=== PATIENT | male | born 1980 | race Caucasian/White ===

== ENCOUNTER 2020-04-10 09:28 | Emergency (ER) | payer MEDICAID ==
[~2020-04-10] VITALS: Ht 177.8 cm; Wt 95.2 kg
[2020-04-10 09:44] VITALS: BP 127/83
== END 2020-04-10 11:12 | disposition home or self-care (01) ==
LOC: ER 09:29
DX: Z00.8 Encounter for other general examination (principal)
CPT/HCPCS: 99281

== ENCOUNTER 2020-12-08 15:05 | Emergency (ER) | payer MEDICAID ==
[~2020-12-08] VITALS: Ht 177.8 cm; Wt 88.2 kg
[2020-12-08 15:24] VITALS: BP 124/82
--- NOTE | 2020-12-08 15:44 | NUR ---
not in the lobby.
== END 2020-12-08 16:43 | disposition home or self-care (01) ==
LOC: ER 15:06
DX: Z02.89 Encounter for other administrative examinations (principal); F15.90 Other stimulant use, unspecified, uncomplicated; Z98.890 Other specified postprocedural states
CPT/HCPCS: 99281

== ENCOUNTER 2021-01-09 11:00 | Emergency (ER) | payer MEDICAID ==
[~2021-01-09] VITALS: Ht 177.8 cm; Wt 89.1 kg
[2021-01-09 11:08] VITALS: BP 160/88
[2021-01-09] MEDS ORDERED: LORazepam 1 MG tablet PO ONE (12:35)
[2021-01-09] MEDS ORDERED: LORA-269 PO (12:46)
== END 2021-01-09 13:12 | disposition home or self-care (01) ==
LOC: ER 11:00
DX: F41.9 Anxiety disorder, unspecified (principal); R45.1 Restlessness and agitation; F15.90 Other stimulant use, unspecified, uncomplicated; Z98.890 Other specified postprocedural states; Z79.899 Other long term (current) drug therapy
CPT/HCPCS: 99283

== ENCOUNTER 2021-01-21 12:33 | Emergency (ER) | payer MEDICAID ==
[~2021-01-21] VITALS: Ht 177.8 cm; Wt 86.4 kg
[~2021-01-21 12:33] MED LIST: LORA-269 PO
[2021-01-21 12:56] VITALS: BP 146/94
== END 2021-01-21 13:11 ==
LOC: ER 12:33
DX: I10 Essential (primary) hypertension (principal); F15.10 Other stimulant abuse, uncomplicated; Z02.89 Encounter for other administrative examinations
CPT/HCPCS: 99283

== ENCOUNTER → 2021-01-23 | Emergency (ER) | payer MEDICAID ==
[~2021-01-23] VITALS: Ht 177.8 cm; Wt 90.9 kg
[~2021-01-23] MED LIST changes: +BUSP7.5T5 PO; +CHOL500050 PO; +CefTRIAXone 2gm/D5W 50ml BAG 50 ML IV ONE; +normal saline 1000ML IV soln IV ONE; +vancomycin/NS 1 GM ADD-VANTAGE 250 ML IV ONE
[2021-01-23 15:50] VITALS: BP 117/75
== END | disposition left against medical advice (07) ==
LOC: ER 15:08
DX: L03.114 Cellulitis of left upper limb (principal); R11.0 Nausea; A41.9 Sepsis, unspecified organism; F15.90 Other stimulant use, unspecified, uncomplicated; Z59.0 Homelessness; Z79.899 Other long term (current) drug therapy
CPT/HCPCS: 99283

== ENCOUNTER 2021-01-24 03:40 | Inpatient (IN) | payer MEDICAID ==
[~2021-01-24] VITALS: Ht 177.8 cm; Wt 90.0 kg
[~2021-01-24 03:40] MED LIST changes: -BUSP7.5T5 PO; -CHOL500050 PO; -CefTRIAXone 2gm/D5W 50ml BAG 50 ML IV ONE; -normal saline 1000ML IV soln IV ONE; -vancomycin/NS 1 GM ADD-VANTAGE 250 ML IV ONE
[2021-01-24] MEDS ORDERED: piperacillin/tazo 3.375gm/50ml 50 ML IV ONE (07:35)
[2021-01-24 08:14] LABS: BASOPHILS % (AUTO) 0.1 % (0-1); EOSINOPHILS % (AUTO) 0.1 % (0-6); HEMATOCRIT 39.7 % (42.0-52.0); LYMPHOCYTES # (AUTO) 0.5 X10'3 (1.1-4.8); LYMPHOCYTES % (AUTO) 2.3 % (21-51); MEAN CORPUSCULAR HGB CONC 35.4 g/dL (33.0-36.5); MEAN CORPUSCULAR VOLUME 87.7 FL (78-98); MONOCYTES # (AUTO) 0.9 X10'3 (0-0.9); MONOCYTES % (AUTO) 4.6 % (2-12); NEUTROPHILS # (AUTO) 18.8 X10'3 (1.8-7.7); NEUTROPHILS % (AUTO) 92.9 % (42-75); PLATELET COUNT 224 X10'3 (140-440); RED BLOOD COUNT 4.52 X10'6 (4.70-6.10); RED CELL DISTRIBUTION WIDTH 12.9 % (11.5-14.5); WHITE BLOOD COUNT 20.2 X10'3 (4.5-11.0)
[2021-01-24 08:15] LABS: CLARITY,URINE CLEAR (Clear); COLOR,URINE YELLOW (Yellow); GLUCOSE, URINE 500 mg/dl (Neg); KETONES,URINE NEGATIVE (Neg); LEUKOCYTE ESTERASE ,URINE NEGATIVE (Neg); NITRITES, URINE NEGATIVE (Neg); OCCULT BLOOD,URINE SMALL (Neg); PROTEIN,URINE NEGATIVE (Neg); UROBILINOGEN,URINE 0.2 E.U/dL (0.2-1.0)
[2021-01-24 08:20] LABS: UA COLLECTION TYPE CLN CATCH MIDSTREAM
[2021-01-24 08:21] LABS: SQUAMOUS EPITHELIAL CELL,UR FEW /LPF (FEW)
[2021-01-24 08:22] LABS: BACTERIA,URINE 1+ /HPF (Neg); RBC,URINE 0-2 /HPF (0-2); WBC,URINE 0-4 /HPF (0-4)
[2021-01-24 08:28] LABS: ALANINE AMINOTRANSFERASE 47 U/L (12-78); ALBUMIN 2.7 G/DL (3.4-5.0); ALBUMIN/GLOBULIN RATIO 0.6 (1.1-1.5); ALKALINE PHOSPHATASE 96 IU/L (46-116); ANION GAP 11 (8-16); ASPARTATE AMINO TRANSFERASE 30 U/L (10-37); BILIRUBIN,TOTAL 0.6 MG/DL (0.1-1.0); BLOOD UREA NITROGEN 11 MG/DL (7-18); BUN/CREATININE RATIO 12.8 (5.4-32.0); CHLORIDE 93 MMOL/L (99-107); CREATININE 0.86 MG/DL (0.60-1.10); GLUCOSE 142 MG/DL (70-104); MAGNESIUM 2.2 MG/DL (1.5-2.4); POTASSIUM 3.1 MMOL/L (3.5-5.1); SODIUM 132 MMOL/L (135-145); TOTAL CARBON DIOXIDE 28.5 MMOL/L (24-32); TOTAL PROTEIN 7.5 G/DL (6.4-8.2); eGFR > 90 ML/MIN
[2021-01-24 08:37] LABS: CALCIUM 9.3 MG/DL (8.5-10.1)
[2021-01-24] MEDS ORDERED: iohexol 300mg/ml 100ml inj. ONE (08:42)
[2021-01-24] MEDS ORDERED: normal saline 1000ML IV soln IV ONE (08:50)
[2021-01-24] MEDS ORDERED: VANCOmycin 1250MG/NS 250ml Bag 250 ML IV STA (10:20)
[2021-01-24] MEDS ORDERED: potassium Cl 40MEQ/1/2NS 520ml 520 ML IV PRN ×2 (10:20)
[2021-01-24] MEDS ORDERED: ondansetron/PF 4mg/2ml inj IV PRN (10:20)
[2021-01-24] MEDS ORDERED: magnesium 2GM in 50ml NS 50 ML IV PRN (10:20)
[2021-01-24] MEDS ORDERED: magnesium 4gm in 100ml NS 100 ML IV PRN (10:20)
[2021-01-24] MEDS ORDERED: magnesium Cl slow-release 64mg tablet PO PRN (10:20)
[2021-01-24] MEDS ORDERED: magnesium hydroxide 30ml (MOM) UD suspension PO PRN (10:20)
[2021-01-24] MEDS ORDERED: HYDROcodone/acetaminophen 5mg/325mg tablet PO PRN (10:20)
[2021-01-24] MEDS ORDERED: acetaminophen 325mg tablet PO PRN ×2 (10:20)
[2021-01-24] MEDS ORDERED: potassium Cl 20 mEq SR tablet PO PRN (10:20)
[2021-01-24] MEDS ORDERED: mag hydrox/Alum hydrox/simeth 30ml oral suspension PO PRN (10:20)
[2021-01-24] MEDS: normal saline 1000ml 1,000 ML IV SCH ×2 (10:51→16:28)
[2021-01-24] MEDS: vancomycin/NS 1 GM ADD-VANTAGE 250 ML IV SCH ×3 (10:51→12:05)
[2021-01-24] MEDS: potassium Cl 20 mEq SR tablet PO PRN ×2 (12:05→16:28)
[2021-01-24] MEDS ORDERED: BUSP7.5T5 PO (12:07)
[2021-01-24] MEDS ORDERED: CHOL500050 PO (12:07)
[2021-01-24] MEDS ORDERED: LORA-269 PO (12:12)
[2021-01-24] MEDS: LORazepam 0.5 MG tablet PO PRN ×2 (12:51→19:30)
[2021-01-24 14:30] VITALS: BP 138/87
[2021-01-24] MEDS: piperacillin/tazo 3.375gm/50ml 50 ML IV SCH (16:27)
[2021-01-24] MEDS: HYDROcodone/acetaminophen 10/325mg tab PO PRN ×2 (16:31→21:23)
--- NOTE | 2021-01-24 18:56 | NUR ---
Problems reprioritized. Patient report given, questions answered & plan of care reviewed with AISLINN JUAREZ.
[2021-01-24 19:00] VITALS: BP 116/75
[2021-01-24] MEDS ORDERED: TETanus/Pertussis (Acell)/Diphther VAC/PF (Tdap-Adult) 0.5ml syringe IMVAC ONE (19:00)
[2021-01-24] MEDS: docusate sod 100mg capsule PO SCH (19:30)
[2021-01-24] MEDS: K and/or MAG REPLACEMENT MC SCH (20:00)
[2021-01-24] MEDS ORDERED: temazepam 15mg capsule PO PRN (21:00)
[2021-01-25] VITALS: BP 106/60
[2021-01-25] MEDS: piperacillin/tazo 3.375gm/50ml 50 ML IV SCH ×3 (00:21→16:27)
[2021-01-25] MEDS: normal saline 1000ml 1,000 ML IV SCH ×2 (00:27→12:32)
[2021-01-25] MEDS: vancomycin/NS 1 GM ADD-VANTAGE 250 ML IV SCH ×2 (02:56→12:28)
[2021-01-25] MEDS: HYDROcodone/acetaminophen 10/325mg tab PO PRN ×3 (03:02→19:47)
--- NOTE | 2021-01-25 06:45 | NUR ---
Problems reprioritized. Patient report given, questions answered & plan of care reviewed with Hannah TAO.
[2021-01-25 07:08] LABS: BASOPHILS % (AUTO) 0.1 % (0-1); EOSINOPHILS % (AUTO) 0.2 % (0-6); HEMATOCRIT 33.8 % (42.0-52.0); HEMOGLOBIN 11.7 g/dl (14.0-17.9); LYMPHOCYTES # (AUTO) 1.3 X10'3 (1.1-4.8); LYMPHOCYTES % (AUTO) 5.9 % (21-51); MEAN CORPUSCULAR HEMOGLOBIN 30.3 PG (27.0-31.0); MEAN CORPUSCULAR HGB CONC 34.6 g/dL (33.0-36.5); MEAN CORPUSCULAR VOLUME 87.8 FL (78-98); MEAN PLATELET VOLUME 8.3 FL (7.4-10.4); MONOCYTES # (AUTO) 1.5 X10'3 (0-0.9); MONOCYTES % (AUTO) 7.2 % (2-12); NEUTROPHILS # (AUTO) 18.6 X10'3 (1.8-7.7); NEUTROPHILS % (AUTO) 86.6 % (42-75); PLATELET COUNT 241 X10'3 (140-440); RED BLOOD COUNT 3.85 X10'6 (4.70-6.10); RED CELL DISTRIBUTION WIDTH 13.1 % (11.5-14.5); WHITE BLOOD COUNT 21.5 X10'3 (4.5-11.0)
[2021-01-25 07:21] LABS: ALANINE AMINOTRANSFERASE 52 U/L (12-78); ALBUMIN/GLOBULIN RATIO 0.5 (1.1-1.5); ALKALINE PHOSPHATASE 232 IU/L (46-116); ANION GAP 6 (8-16); ASPARTATE AMINO TRANSFERASE 33 U/L (10-37); BILIRUBIN,TOTAL 0.3 MG/DL (0.1-1.0); BLOOD UREA NITROGEN 9 MG/DL (7-18); BUN/CREATININE RATIO 11.3 (5.4-32.0); CALCIUM 7.7 MG/DL (8.5-10.1); CHLORIDE 102 MMOL/L (99-107); GLUCOSE 92 MG/DL (70-104); MAGNESIUM 1.8 MG/DL (1.5-2.4); POTASSIUM 3.8 MMOL/L (3.5-5.1); SODIUM 133 MMOL/L (135-145); TOTAL CARBON DIOXIDE 24.8 MMOL/L (24-32); TOTAL PROTEIN 5.7 G/DL (6.4-8.2); eGFR > 90 ML/MIN
[2021-01-25 08:00] VITALS: BP 108/62
[2021-01-25] MEDS: K and/or MAG REPLACEMENT MC SCH ×2 (08:00→20:00)
[2021-01-25] MEDS: docusate sod 100mg capsule PO SCH ×2 (08:24→19:48)
[2021-01-25] MEDS: enoxaparin 40mg/0.4ml syringe SUBCUT SCH (08:25)
[2021-01-25] MEDS: LORazepam 0.5 MG tablet PO PRN ×2 (09:57→19:48)
[2021-01-25] MEDS ORDERED: VANCOMYCIN LEVEL IV ONE (10:30)
[2021-01-25 11:00] VITALS: BP 109/71
[2021-01-25 12:42] LABS: PLATELET ESTIMATE NORMAL; TOTAL CELLS COUNTED 100
[2021-01-25] MEDS ORDERED: vancomycin inj 500 MG in normal saline 100ml IV soln 100 ML IV ONE (14:20)
[2021-01-25] MEDS: HYDROmorphone inj. 0.5 MG/0.5 ML DISP.SYRIN IV PRN (16:39)
[2021-01-25 18:00] VITALS: BP 144/86
--- NOTE | 2021-01-25 19:20 | NUR ---
Patient in room [facility]. I have received report from AISLINN Young and had the opportunity to ask questions and assume patient care. Patient is on phone at the time of me introducing myself
--- NOTE | 2021-01-25 19:26 | NUR ---
Report given to Wyatt Salomon, all questions answered. Pt alert and oriented in bed.
[2021-01-25] MEDS: lactobacillus rhamnosus 10,000 MMU CELLS/CAPSULE PO SCH (19:48)
[2021-01-26 00:29] VITALS: BP 120/63
[2021-01-26] MEDS: piperacillin/tazo 3.375gm/50ml 50 ML IV SCH ×2 (01:14→08:22)
[2021-01-26] MEDS: HYDROcodone/acetaminophen 10/325mg tab PO PRN ×3 (01:16→11:32)
[2021-01-26] MEDS: LORazepam 0.5 MG tablet PO PRN ×3 (01:16→23:05)
[2021-01-26] MEDS: normal saline 1000ml 1,000 ML IV SCH ×3 (02:20→22:20)
--- NOTE | 2021-01-26 06:06 | NUR ---
Problems reprioritized. Patient report given, questions answered & plan of care reviewed with AISLINN Young.
[2021-01-26 06:41] LABS: BASOPHILS % (AUTO) 0.2 % (0-1); EOSINOPHILS # (AUTO) 0.1 X10'3 (0-0.9); EOSINOPHILS % (AUTO) 0.7 % (0-6); HEMATOCRIT 37.2 % (42.0-52.0); HEMOGLOBIN 12.7 g/dl (14.0-17.9); LYMPHOCYTES # (AUTO) 1.3 X10'3 (1.1-4.8); LYMPHOCYTES % (AUTO) 7.2 % (21-51); MEAN CORPUSCULAR HEMOGLOBIN 30.1 PG (27.0-31.0); MEAN CORPUSCULAR HGB CONC 34.2 g/dL (33.0-36.5); MEAN CORPUSCULAR VOLUME 87.9 FL (78-98); MEAN PLATELET VOLUME 7.8 FL (7.4-10.4); MONOCYTES # (AUTO) 1.5 X10'3 (0-0.9); MONOCYTES % (AUTO) 8.5 % (2-12); NEUTROPHILS # (AUTO) 14.6 X10'3 (1.8-7.7); NEUTROPHILS % (AUTO) 83.4 % (42-75); PLATELET COUNT 300 X10'3 (140-440); RED BLOOD COUNT 4.23 X10'6 (4.70-6.10); RED CELL DISTRIBUTION WIDTH 13.1 % (11.5-14.5); WHITE BLOOD COUNT 17.6 X10'3 (4.5-11.0)
--- NOTE | 2021-01-26 06:44 | NUR ---
Patient asked to go outside for just a "second", I told him that he had to stay on the floor, if he leaves the floor it is considered that he has left medical advice. He agrees to stay on the floor.
[2021-01-26 06:52] LABS: ALANINE AMINOTRANSFERASE 89 U/L (12-78); ALBUMIN 2.1 G/DL (3.4-5.0); ALBUMIN/GLOBULIN RATIO 0.5 (1.1-1.5); ALKALINE PHOSPHATASE 212 IU/L (46-116); ANION GAP 7 (8-16); ASPARTATE AMINO TRANSFERASE 46 U/L (10-37); BILIRUBIN,TOTAL 0.3 MG/DL (0.1-1.0); BLOOD UREA NITROGEN 6 MG/DL (7-18); BUN/CREATININE RATIO 7.9 (5.4-32.0); CALCIUM 8.2 MG/DL (8.5-10.1); CHLORIDE 103 MMOL/L (99-107); CREATININE 0.76 MG/DL (0.60-1.10); GLUCOSE 100 MG/DL (70-104); MAGNESIUM 2.3 MG/DL (1.5-2.4); POTASSIUM 3.8 MMOL/L (3.5-5.1); SODIUM 139 MMOL/L (135-145); TOTAL CARBON DIOXIDE 28.6 MMOL/L (24-32); TOTAL PROTEIN 6.6 G/DL (6.4-8.2); eGFR > 90 ML/MIN
[2021-01-26 07:00] VITALS: BP_SYST 126; BP_SYST 134; BP_DIAS 83; BP_DIAS 86
[2021-01-26 07:10] LABS: PLATELET ESTIMATE NORMAL; TOTAL CELLS COUNTED 100; TOXIC GRANULATION 2+
[2021-01-26] MEDS: docusate sod 100mg capsule PO SCH ×2 (07:50→19:07)
[2021-01-26] MEDS: lactobacillus rhamnosus 10,000 MMU CELLS/CAPSULE PO SCH ×2 (07:50→19:07)
[2021-01-26] MEDS: enoxaparin 40mg/0.4ml syringe SUBCUT SCH (07:51)
[2021-01-26] MEDS: K and/or MAG REPLACEMENT MC SCH ×2 (08:00→19:09)
[2021-01-26] MEDS ORDERED: VANCOMYCIN LEVEL IV ONE (12:30)
[2021-01-26] MEDS: clindamycin 600mg/D5W 50ml 50 ML IV SCH ×2 (14:14→19:07)
[2021-01-26] MEDS: HYDROmorphone inj. 0.5 MG/0.5 ML DISP.SYRIN IV PRN ×3 (14:14→23:03)
[2021-01-26] MEDS: VANCOmycin 1250MG/NS 250ml Bag 250 ML IV SCH ×2 (15:04→21:38)
[2021-01-26 18:00] VITALS: BP 120/69
[2021-01-26 23:45] VITALS: BP 108/74
[2021-01-27] MEDS: normal saline 1000ml 1,000 ML IV SCH ×2 (00:47→16:13)
[2021-01-27] MEDS: clindamycin 600mg/D5W 50ml 50 ML IV SCH ×4 (02:34→20:33)
[2021-01-27] MEDS: HYDROmorphone inj. 0.5 MG/0.5 ML DISP.SYRIN IV PRN ×3 (03:05→21:23)
[2021-01-27] MEDS: LORazepam 0.5 MG tablet PO PRN ×2 (03:15→11:58)
[2021-01-27] MEDS: VANCOmycin 1250MG/NS 250ml Bag 250 ML IV SCH ×4 (03:15→21:23)
--- NOTE | 2021-01-27 06:46 | NUR ---
Report given to Alayna Salomon, all questions answered. Pt has fallen asleep. No distress.
[2021-01-27 07:00] VITALS: BP 139/86
--- NOTE | 2021-01-27 07:07 | NUR ---
Patient in room [facility]. I have received report from Hannah TAO and had the opportunity to ask questions and assume patient care.
[2021-01-27] MEDS: K and/or MAG REPLACEMENT MC SCH ×2 (08:00→20:00)
[2021-01-27] MEDS: lactobacillus rhamnosus 10,000 MMU CELLS/CAPSULE PO SCH ×2 (08:48→20:32)
[2021-01-27] MEDS: enoxaparin 40mg/0.4ml syringe SUBCUT SCH (08:49)
[2021-01-27] MEDS: HYDROcodone/acetaminophen 10/325mg tab PO PRN ×3 (08:49→19:58)
[2021-01-27] MEDS: docusate sod 100mg capsule PO SCH ×2 (08:49→20:33)
[2021-01-27 10:02] LABS: BASOPHILS # (AUTO) 0.1 X10'3 (0-0.2); BASOPHILS % (AUTO) 0.8 % (0-1); EOSINOPHILS # (AUTO) 0.2 X10'3 (0-0.9); HEMATOCRIT 36.9 % (42.0-52.0); HEMOGLOBIN 12.7 g/dl (14.0-17.9); LYMPHOCYTES # (AUTO) 1.4 X10'3 (1.1-4.8); LYMPHOCYTES % (AUTO) 8.3 % (21-51); MEAN CORPUSCULAR HEMOGLOBIN 30.4 PG (27.0-31.0); MEAN CORPUSCULAR HGB CONC 34.5 g/dL (33.0-36.5); MEAN CORPUSCULAR VOLUME 88.3 FL (78-98); MONOCYTES % (AUTO) 6.1 % (2-12); NEUTROPHILS % (AUTO) 83.8 % (42-75); PLATELET COUNT 367 X10'3 (140-440); RED BLOOD COUNT 4.19 X10'6 (4.70-6.10); RED CELL DISTRIBUTION WIDTH 13.2 % (11.5-14.5); WHITE BLOOD COUNT 16.7 X10'3 (4.5-11.0)
[2021-01-27 10:21] LABS: ALANINE AMINOTRANSFERASE 103 U/L (12-78); ALBUMIN 2.2 G/DL (3.4-5.0); ALBUMIN/GLOBULIN RATIO 0.5 (1.1-1.5); ALKALINE PHOSPHATASE 177 IU/L (46-116); ANION GAP 10 (8-16); ASPARTATE AMINO TRANSFERASE 46 U/L (10-37); BILIRUBIN,TOTAL 0.2 MG/DL (0.1-1.0); BLOOD UREA NITROGEN 6 MG/DL (7-18); BUN/CREATININE RATIO 7.8 (5.4-32.0); CHLORIDE 101 MMOL/L (99-107); CREATININE 0.77 MG/DL (0.60-1.10); GLUCOSE 151 MG/DL (70-104); MAGNESIUM 2.1 MG/DL (1.5-2.4); POTASSIUM 3.7 MMOL/L (3.5-5.1); SODIUM 138 MMOL/L (135-145); TOTAL CARBON DIOXIDE 26.8 MMOL/L (24-32); TOTAL PROTEIN 6.6 G/DL (6.4-8.2); VANCOMYCIN,TROUGH 13.5 UG/ML (6.0-14.0); eGFR > 90 ML/MIN
[2021-01-27 10:26] LABS: PLATELET ESTIMATE NORMAL; TOTAL CELLS COUNTED 100
[2021-01-27 11:00] VITALS: BP 156/66
--- NOTE | 2021-01-27 11:00 | NUR ---
Measured patients arm and made mai on left arm just below elbow measuring 39cm and left Bicep measuring 41cm.
[2021-01-27] MEDS ORDERED: GADOTERATE MEGLUMINE 7.5 MMOL/15 ML VIAL IV ONE (11:48)
[2021-01-27 18:00] VITALS: BP 151/109
--- NOTE | 2021-01-27 18:17 | NUR ---
Problems reprioritized. Patient report given, questions answered & plan of care reviewed with Heidy RN and CELESTE RN.
--- NOTE | 2021-01-27 19:23 | NUR ---
Patient in room [facility]. I have received report from LARRY TAO and had the opportunity to ask questions and assume patient care.
[2021-01-28] VITALS: BP 139/82
[2021-01-28] MEDS: HYDROcodone/acetaminophen 10/325mg tab PO PRN ×4 (00:42→17:33)
[2021-01-28] MEDS: clindamycin 600mg/D5W 50ml 50 ML IV SCH ×4 (02:56→21:28)
[2021-01-28] MEDS: VANCOmycin 1250MG/NS 250ml Bag 250 ML IV SCH ×2 (03:16→11:25)
[2021-01-28] MEDS: HYDROmorphone inj. 0.5 MG/0.5 ML DISP.SYRIN IV PRN ×4 (03:16→21:28)
[2021-01-28] MEDS: normal saline 1000ml 1,000 ML IV SCH ×3 (04:20→22:54)
--- NOTE | 2021-01-28 06:35 | NUR ---
Patient in room [facility]. I have received report from LUNA TAO and had the opportunity to ask questions and assume patient care.
--- NOTE | 2021-01-28 06:41 | NUR ---
Problems reprioritized. Patient report given, questions answered & plan of care reviewed with CHASITY RN.
--- NOTE | 2021-01-28 06:42 | NUR ---
Problems reprioritized. Patient report given, questions answered & plan of care reviewed with Paulie RN.
[2021-01-28 07:19] VITALS: BP 140/90
[2021-01-28] MEDS: K and/or MAG REPLACEMENT MC SCH ×2 (08:00→20:00)
[2021-01-28] MEDS ORDERED: VANCOMYCIN LEVEL IV ONE (08:30)
[2021-01-28] MEDS: lactobacillus rhamnosus 10,000 MMU CELLS/CAPSULE PO SCH ×2 (08:34→20:44)
[2021-01-28] MEDS: enoxaparin 40mg/0.4ml syringe SUBCUT SCH (08:35)
[2021-01-28] MEDS: docusate sod 100mg capsule PO SCH ×2 (08:35→20:44)
[2021-01-28 10:35] LABS: BASOPHILS # (AUTO) 0.2 X10'3 (0-0.2); BASOPHILS % (AUTO) 1.1 % (0-1); EOSINOPHILS # (AUTO) 0.3 X10'3 (0-0.9); EOSINOPHILS % (AUTO) 1.3 % (0-6); HEMATOCRIT 39.2 % (42.0-52.0); HEMOGLOBIN 13.8 g/dl (14.0-17.9); LYMPHOCYTES # (AUTO) 2.3 X10'3 (1.1-4.8); LYMPHOCYTES % (AUTO) 11.7 % (21-51); MEAN CORPUSCULAR HEMOGLOBIN 30.8 PG (27.0-31.0); MEAN CORPUSCULAR HGB CONC 35.2 g/dL (33.0-36.5); MEAN CORPUSCULAR VOLUME 87.4 FL (78-98); MEAN PLATELET VOLUME 7.6 FL (7.4-10.4); MONOCYTES # (AUTO) 1.3 X10'3 (0-0.9); MONOCYTES % (AUTO) 6.7 % (2-12); NEUTROPHILS # (AUTO) 15.4 X10'3 (1.8-7.7); NEUTROPHILS % (AUTO) 79.2 % (42-75); PLATELET COUNT 482 X10'3 (140-440); RED BLOOD COUNT 4.49 X10'6 (4.70-6.10); WHITE BLOOD COUNT 19.5 X10'3 (4.5-11.0)
[2021-01-28 10:48] LABS: ALANINE AMINOTRANSFERASE 134 U/L (12-78); ALBUMIN 2.6 G/DL (3.4-5.0); ALBUMIN/GLOBULIN RATIO 0.5 (1.1-1.5); ALKALINE PHOSPHATASE 180 IU/L (46-116); ANION GAP 8 (8-16); ASPARTATE AMINO TRANSFERASE 45 U/L (10-37); BILIRUBIN,TOTAL 0.3 MG/DL (0.1-1.0); BLOOD UREA NITROGEN 6 MG/DL (7-18); BUN/CREATININE RATIO 8.8 (5.4-32.0); CALCIUM 8.8 MG/DL (8.5-10.1); CHLORIDE 102 MMOL/L (99-107); CREATININE 0.68 MG/DL (0.60-1.10); GLUCOSE 88 MG/DL (70-104); MAGNESIUM 2.3 MG/DL (1.5-2.4); POTASSIUM 3.8 MMOL/L (3.5-5.1); SODIUM 142 MMOL/L (135-145); TOTAL CARBON DIOXIDE 31.8 MMOL/L (24-32); TOTAL PROTEIN 7.8 G/DL (6.4-8.2); VANCOMYCIN,TROUGH 13.5 UG/ML (6.0-14.0); eGFR > 90 ML/MIN
[2021-01-28 11:00] LABS: TOTAL CELLS COUNTED 100
[2021-01-28 11:01] LABS: PLATELET ESTIMATE INCREASED
[2021-01-28 12:15] VITALS: BP 145/88
[2021-01-28] MEDS: LORazepam 0.5 MG tablet PO PRN (12:43)
[2021-01-28] MEDS: vancomycin 1500mg/300ml PREMIX 250 ML IV SCH ×2 (17:29→23:40)
[2021-01-28] MEDS: nicotine 21mg patch - 24 hr TD SCH (17:29)
[2021-01-28] MEDS: montelukast 10mg tablet PO SCH (17:55)
[2021-01-28 18:00] VITALS: BP 148/94
--- NOTE | 2021-01-28 18:43 | NUR ---
Problems reprioritized. Patient report given, questions answered & plan of care reviewed with Emmy TAO.
--- NOTE | 2021-01-28 18:44 | NUR ---
Patient in room [facility]. I have received report from AISLINN Apodaca and had the opportunity to ask questions and assume patient care.
[2021-01-28] MEDS: hydrOXYzine 25 MG tablet PO SCH (20:44)
[2021-01-28] MEDS: mineral oil/petrolatum, white cream 113gm jar TP SCH (21:28)
[2021-01-29] VITALS: BP 135/92
[2021-01-29] MEDS: HYDROmorphone inj. 0.5 MG/0.5 ML DISP.SYRIN IV PRN ×3 (01:49→11:52)
[2021-01-29] MEDS: hydrOXYzine 25 MG tablet PO SCH ×4 (02:30→19:47)
[2021-01-29] MEDS: clindamycin 600mg/D5W 50ml 50 ML IV SCH ×4 (02:31→20:03)
[2021-01-29] MEDS: HYDROcodone/acetaminophen 10/325mg tab PO PRN ×4 (04:09→22:32)
[2021-01-29 05:55] LABS: BASOPHILS # (AUTO) 0.2 X10'3 (0-0.2); BASOPHILS % (AUTO) 0.9 % (0-1); EOSINOPHILS # (AUTO) 0.3 X10'3 (0-0.9); EOSINOPHILS % (AUTO) 1.7 % (0-6); HEMATOCRIT 37.6 % (42.0-52.0); HEMOGLOBIN 12.9 g/dl (14.0-17.9); LYMPHOCYTES # (AUTO) 2.2 X10'3 (1.1-4.8); LYMPHOCYTES % (AUTO) 12.9 % (21-51); MEAN CORPUSCULAR HEMOGLOBIN 30.8 PG (27.0-31.0); MEAN CORPUSCULAR HGB CONC 34.4 g/dL (33.0-36.5); MEAN CORPUSCULAR VOLUME 89.5 FL (78-98); MEAN PLATELET VOLUME 7.4 FL (7.4-10.4); MONOCYTES % (AUTO) 6.1 % (2-12); NEUTROPHILS # (AUTO) 13.4 X10'3 (1.8-7.7); NEUTROPHILS % (AUTO) 78.4 % (42-75); PLATELET COUNT 448 X10'3 (140-440); RED CELL DISTRIBUTION WIDTH 13.2 % (11.5-14.5); WHITE BLOOD COUNT 17.1 X10'3 (4.5-11.0)
[2021-01-29 06:11] LABS: ALANINE AMINOTRANSFERASE 129 U/L (12-78); ALBUMIN 2.3 G/DL (3.4-5.0); ALBUMIN/GLOBULIN RATIO 0.5 (1.1-1.5); ALKALINE PHOSPHATASE 149 IU/L (46-116); ANION GAP 7 (8-16); ASPARTATE AMINO TRANSFERASE 50 U/L (10-37); BILIRUBIN,TOTAL 0.2 MG/DL (0.1-1.0); BLOOD UREA NITROGEN 8 MG/DL (7-18); BUN/CREATININE RATIO 9.1 (5.4-32.0); CALCIUM 8.5 MG/DL (8.5-10.1); CHLORIDE 103 MMOL/L (99-107); CREATININE 0.88 MG/DL (0.60-1.10); GLUCOSE 123 MG/DL (70-104); MAGNESIUM 2.1 MG/DL (1.5-2.4); POTASSIUM 4.5 MMOL/L (3.5-5.1); SODIUM 138 MMOL/L (135-145); eGFR > 90 ML/MIN
[2021-01-29 07:04] LABS: TOTAL CELLS COUNTED 100
[2021-01-29 07:05] LABS: LARGE PLATELETS FEW; PLATELET ESTIMATE NORMAL
[2021-01-29 07:18] VITALS: BP 135/92
[2021-01-29 07:32] VITALS: BP 154/97
[2021-01-29] MEDS: lactobacillus rhamnosus 10,000 MMU CELLS/CAPSULE PO SCH ×2 (07:48→19:47)
[2021-01-29] MEDS: montelukast 10mg tablet PO SCH (07:48)
[2021-01-29] MEDS: docusate sod 100mg capsule PO SCH ×2 (07:48→19:48)
[2021-01-29] MEDS: vancomycin 1500mg/300ml PREMIX 250 ML IV SCH ×3 (07:49→17:53)
[2021-01-29] MEDS: enoxaparin 40mg/0.4ml syringe SUBCUT SCH (07:51)
[2021-01-29] MEDS: nicotine 21mg patch - 24 hr TD SCH (07:58)
[2021-01-29] MEDS: K and/or MAG REPLACEMENT MC SCH ×2 (08:00→20:00)
[2021-01-29] MEDS: mineral oil/petrolatum, white cream 113gm jar TP SCH ×2 (08:04→20:04)
[2021-01-29] MEDS ORDERED: VANCOMYCIN LEVEL IV ONE ×3 (10:30→22:30)
[2021-01-29 11:26] VITALS: BP 155/95
[2021-01-29] MEDS: normal saline 1000ml 1,000 ML IV SCH ×2 (11:52→20:20)
--- NOTE | 2021-01-29 14:40 | NUR ---
PIV inserted to right FA after 2 failed attempt to establish an extended PIV in the upper right arm using ultrasound guidance. Addendum: 01/29/21 at 1443 by Kate Lester RN Amended: Links added.
--- NOTE | 2021-01-29 16:02 | NUR ---
Initial: Pt admit DX L arm cellulitis, transaminitis, and CHANI w/ hx meth abuse per EMR. PO 75-100% avg regular diet meeting needs. LBM 01/28. No nutrition intervention at this time. Will continue to monitor. Rec: 1. continue regular diet 2. routine bowel care 3. scaled wt this admit; subsequent weekly wts Addendum: 01/29/21 at [address] Amended: Links added.
[2021-01-29 18:00] VITALS: BP 116/68
--- NOTE | 2021-01-29 18:31 | NUR ---
Problems reprioritized. Patient report given, questions answered & plan of care reviewed with Emmy TAO.
--- NOTE | 2021-01-29 18:32 | NUR ---
Patient in room [facility]. I have received report from AISLINN Apodaca and had the opportunity to ask questions and assume patient care.
--- NOTE | 2021-01-29 22:42 | NUR ---
Patients old lines to arm for measuring had washed off I made new lines with a shapie pen and new measurements are left Bicep is 36 cm and left forearm 37cm
--- NOTE | 2021-01-29 22:53 | NUR ---
Received call from Vick with the lab who stated patients Vanco tr is critical 23.8. Called and spoke to Nenita the pharmacist who stated to hold this dose and she will put in a VT for 0430 and wants it drawn at exactly 0430. Nenita is putting a hold on the 0500 dose of Vanco until VT is up and phamacist takes the hold off. If we see the Vanco results we can call pharmacy to advise if we are to give the 0500 dose. Primary RN Emmy is aware and xray tech aware.
--- NOTE | 2021-01-29 23:00 | NUR ---
Dr Ramirez was notified of patient's critical Vanco trough of 23.8
[2021-01-30] VITALS: BP 130/71
[2021-01-30] MEDS: HYDROmorphone inj. 0.5 MG/0.5 ML DISP.SYRIN IV PRN ×3 (01:47→19:07)
[2021-01-30] MEDS: clindamycin 600mg/D5W 50ml 50 ML IV SCH ×4 (02:00→22:54)
[2021-01-30] MEDS: hydrOXYzine 25 MG tablet PO SCH ×4 (02:03→19:07)
--- NOTE | 2021-01-30 06:17 | NUR ---
Problems reprioritized. Patient report given, questions answered & plan of care reviewed with AISLINN Ruth.
[2021-01-30] MEDS: normal saline 1000ml 1,000 ML IV SCH ×3 (06:20→22:54)
[2021-01-30 06:52] LABS: MAGNESIUM 2.4 MG/DL (1.5-2.4); VANCOMYCIN,TROUGH 9.9 UG/ML (6.0-14.0)
[2021-01-30 07:00] VITALS: BP 130/86
[2021-01-30] MEDS: docusate sod 100mg capsule PO SCH ×2 (07:30→19:08)
[2021-01-30] MEDS: montelukast 10mg tablet PO SCH (07:30)
[2021-01-30] MEDS: lactobacillus rhamnosus 10,000 MMU CELLS/CAPSULE PO SCH ×2 (07:31→19:08)
[2021-01-30] MEDS: nicotine 21mg patch - 24 hr TD SCH (07:31)
[2021-01-30] MEDS: enoxaparin 40mg/0.4ml syringe SUBCUT SCH (07:32)
[2021-01-30] MEDS: HYDROcodone/acetaminophen 10/325mg tab PO PRN (07:32)
[2021-01-30] MEDS: K and/or MAG REPLACEMENT MC SCH ×2 (08:00→20:00)
[2021-01-30] MEDS ORDERED: LORazepam 1 MG tablet PO PRN (09:05)
[2021-01-30 09:52] LABS: BASOPHILS # (AUTO) 0.1 X10'3 (0-0.2); BASOPHILS % (AUTO) 0.5 % (0-1); EOSINOPHILS # (AUTO) 0.2 X10'3 (0-0.9); EOSINOPHILS % (AUTO) 1.5 % (0-6); HEMATOCRIT 41.7 % (42.0-52.0); HEMOGLOBIN 14.4 g/dl (14.0-17.9); LYMPHOCYTES # (AUTO) 2.1 X10'3 (1.1-4.8); LYMPHOCYTES % (AUTO) 18.2 % (21-51); MEAN CORPUSCULAR HEMOGLOBIN 30.5 PG (27.0-31.0); MEAN CORPUSCULAR HGB CONC 34.6 g/dL (33.0-36.5); MEAN CORPUSCULAR VOLUME 88.3 FL (78-98); MEAN PLATELET VOLUME 6.9 FL (7.4-10.4); MONOCYTES # (AUTO) 0.7 X10'3 (0-0.9); MONOCYTES % (AUTO) 5.6 % (2-12); NEUTROPHILS # (AUTO) 8.7 X10'3 (1.8-7.7); NEUTROPHILS % (AUTO) 74.2 % (42-75); PLATELET COUNT 519 X10'3 (140-440); RED BLOOD COUNT 4.72 X10'6 (4.70-6.10); RED CELL DISTRIBUTION WIDTH 13.3 % (11.5-14.5); WHITE BLOOD COUNT 11.7 X10'3 (4.5-11.0)
[2021-01-30 10:14] LABS: ALANINE AMINOTRANSFERASE 183 U/L (12-78); ALBUMIN 2.9 G/DL (3.4-5.0); ALBUMIN/GLOBULIN RATIO 0.5 (1.1-1.5); ALKALINE PHOSPHATASE 159 IU/L (46-116); ANION GAP 10 (8-16); ASPARTATE AMINO TRANSFERASE 72 U/L (10-37); BILIRUBIN,TOTAL 0.2 MG/DL (0.1-1.0); BLOOD UREA NITROGEN 10 MG/DL (7-18); BUN/CREATININE RATIO 13.9 (5.4-32.0); CALCIUM 9.8 MG/DL (8.5-10.1); CHLORIDE 100 MMOL/L (99-107); CREATININE 0.72 MG/DL (0.60-1.10); GLUCOSE 107 MG/DL (70-104); POTASSIUM 4.9 MMOL/L (3.5-5.1); SODIUM 140 MMOL/L (135-145); TOTAL CARBON DIOXIDE 29.7 MMOL/L (24-32); TOTAL PROTEIN 8.4 G/DL (6.4-8.2); eGFR > 90 ML/MIN
[2021-01-30 11:00] VITALS: BP 143/98
[2021-01-30 11:07] LABS: LARGE PLATELETS FEW; PLATELET ESTIMATE INCREASED; TOTAL CELLS COUNTED 100
[2021-01-30] MEDS: vancomycin 1500mg/300ml PREMIX 250 ML IV SCH ×2 (13:46→19:08)
[2021-01-30] MEDS: mineral oil/petrolatum, white cream 113gm jar TP SCH ×2 (13:47→19:08)
[2021-01-30 18:00] VITALS: BP 150/108
--- NOTE | 2021-01-30 18:45 | NUR ---
Problems reprioritized. Patient report given, questions answered & plan of care reviewed with AISLINN APPLE.
--- NOTE | 2021-01-30 18:45 | NUR ---
Patient in room [facility]. I have received report from AISLINN Ruth and had the opportunity to ask questions and assume patient care.
[2021-01-31] VITALS: BP 135/75
[2021-01-31] MEDS: vancomycin 1500mg/300ml PREMIX 250 ML IV SCH ×6 (01:00→20:54)
[2021-01-31] MEDS: hydrOXYzine 25 MG tablet PO SCH ×4 (02:19→20:54)
--- NOTE | 2021-01-31 02:52 | NUR ---
Patient's vanco had label from day before was told by Nick in pharmacy to override. The discontinued med label was scanned and was documented as administered with today's date and time.
[2021-01-31 06:25] LABS: BASOPHILS # (AUTO) 0.1 X10'3 (0-0.2); BASOPHILS % (AUTO) 0.8 % (0-1); EOSINOPHILS # (AUTO) 0.2 X10'3 (0-0.9); EOSINOPHILS % (AUTO) 1.7 % (0-6); HEMATOCRIT 39.9 % (42.0-52.0); HEMOGLOBIN 13.2 g/dl (14.0-17.9); LYMPHOCYTES # (AUTO) 1.6 X10'3 (1.1-4.8); LYMPHOCYTES % (AUTO) 18.4 % (21-51); MEAN CORPUSCULAR HEMOGLOBIN 30.1 PG (27.0-31.0); MEAN CORPUSCULAR HGB CONC 33.2 g/dL (33.0-36.5); MEAN CORPUSCULAR VOLUME 90.7 FL (78-98); MEAN PLATELET VOLUME 7.1 FL (7.4-10.4); MONOCYTES # (AUTO) 0.6 X10'3 (0-0.9); MONOCYTES % (AUTO) 7.2 % (2-12); NEUTROPHILS # (AUTO) 6.3 X10'3 (1.8-7.7); NEUTROPHILS % (AUTO) 71.9 % (42-75); PLATELET COUNT 443 X10'3 (140-440); RED CELL DISTRIBUTION WIDTH 13.4 % (11.5-14.5); WHITE BLOOD COUNT 8.8 X10'3 (4.5-11.0)
[2021-01-31] MEDS ORDERED: VANCOMYCIN LEVEL IV ONE ×2 (06:30→14:30)
--- NOTE | 2021-01-31 06:32 | NUR ---
Problems reprioritized. Patient report given, questions answered & plan of care reviewed with AISLINN Hadley.
[2021-01-31 06:40] LABS: ALANINE AMINOTRANSFERASE 172 U/L (12-78); ALBUMIN 2.6 G/DL (3.4-5.0); ALBUMIN/GLOBULIN RATIO 0.5 (1.1-1.5); ALKALINE PHOSPHATASE 136 IU/L (46-116); ANION GAP 6 (8-16); ASPARTATE AMINO TRANSFERASE 71 U/L (10-37); BILIRUBIN,TOTAL 0.2 MG/DL (0.1-1.0); BLOOD UREA NITROGEN 13 MG/DL (7-18); BUN/CREATININE RATIO 17.1 (5.4-32.0); CALCIUM 8.9 MG/DL (8.5-10.1); CHLORIDE 105 MMOL/L (99-107); CREATININE 0.76 MG/DL (0.60-1.10); GLUCOSE 121 MG/DL (70-104); MAGNESIUM 2.2 MG/DL (1.5-2.4); POTASSIUM 4.5 MMOL/L (3.5-5.1); SODIUM 139 MMOL/L (135-145); TOTAL CARBON DIOXIDE 27.9 MMOL/L (24-32); TOTAL PROTEIN 7.4 G/DL (6.4-8.2); eGFR > 90 ML/MIN
[2021-01-31 06:43] LABS: VANCOMYCIN,TROUGH 28.9 UG/ML (6.0-14.0)
[2021-01-31 07:00] VITALS: BP 145/104
--- NOTE | 2021-01-31 07:01 | NUR ---
Patient in room [facility]. I have received report from Emmy TAO and had the opportunity to ask questions and assume patient care.
[2021-01-31] MEDS: nicotine 21mg patch - 24 hr TD SCH ×2 (08:00→08:26)
[2021-01-31] MEDS: K and/or MAG REPLACEMENT MC SCH ×2 (08:00→20:00)
[2021-01-31] MEDS: clindamycin 600mg/D5W 50ml 50 ML IV SCH ×4 (08:11→20:48)
[2021-01-31] MEDS: montelukast 10mg tablet PO SCH (08:15)
[2021-01-31] MEDS: docusate sod 100mg capsule PO SCH ×2 (08:15→20:00)
[2021-01-31] MEDS: lactobacillus rhamnosus 10,000 MMU CELLS/CAPSULE PO SCH ×2 (08:15→20:54)
[2021-01-31] MEDS: enoxaparin 40mg/0.4ml syringe SUBCUT SCH (08:15)
[2021-01-31] MEDS: mineral oil/petrolatum, white cream 113gm jar TP SCH ×2 (08:17→20:05)
[2021-01-31] MEDS: HYDROcodone/acetaminophen 10/325mg tab PO PRN ×2 (08:24→16:04)
[2021-01-31] MEDS: HYDROmorphone inj. 0.5 MG/0.5 ML DISP.SYRIN IV PRN (11:02)
[2021-01-31 11:08] VITALS: BP 153/93
[2021-01-31] MEDS: normal saline 1000ml 1,000 ML IV SCH (16:10)
[2021-01-31 18:00] VITALS: BP 145/81
[2021-01-31] MEDS: MESSAGE TO NURSING IV SCH (19:00)
[2021-02-01] VITALS: BP 137/89
[2021-02-01] MEDS: hydrOXYzine 25 MG tablet PO SCH ×3 (02:02→14:52)
[2021-02-01] MEDS: clindamycin 600mg/D5W 50ml 50 ML IV SCH ×3 (02:03→14:52)
[2021-02-01] MEDS: HYDROcodone/acetaminophen 10/325mg tab PO PRN ×3 (02:11→16:37)
--- NOTE | 2021-02-01 02:19 | NUR ---
Patient up and about ambulating frequently in hallway. IV ABX continue. Medicated for pain q4hrly with effect see Emar.left arm cleansed . patient did not want dressing placed back as patients arm looks like it has healed to the point of not requiring Optifoam. Still swollen Bicept 34 cm forearm 34cm.
--- NOTE | 2021-02-01 02:19 | NUR ---
Problems reprioritized. Patient report given, questions answered & plan of care reviewed with Patrizia Michelle RN.
--- NOTE | 2021-02-01 03:10 | NUR ---
assumed care of patient at 2129. Has been up ambulatiing between antibiotics. Pain well controlled with norco per patients request.
[2021-02-01] MEDS: vancomycin 1500mg/300ml PREMIX 250 ML IV SCH ×3 (03:41→15:35)
[2021-02-01] MEDS: HYDROmorphone inj. 0.5 MG/0.5 ML DISP.SYRIN IV PRN (03:50)
[2021-02-01 06:18] LABS: BASOPHILS # (AUTO) 0.1 X10'3 (0-0.2); BASOPHILS % (AUTO) 0.8 % (0-1); EOSINOPHILS # (AUTO) 0.1 X10'3 (0-0.9); EOSINOPHILS % (AUTO) 1.8 % (0-6); HEMATOCRIT 37.6 % (42.0-52.0); HEMOGLOBIN 12.9 g/dl (14.0-17.9); LYMPHOCYTES % (AUTO) 29.8 % (21-51); MEAN CORPUSCULAR HEMOGLOBIN 30.5 PG (27.0-31.0); MEAN CORPUSCULAR HGB CONC 34.3 g/dL (33.0-36.5); MEAN CORPUSCULAR VOLUME 88.9 FL (78-98); MEAN PLATELET VOLUME 6.9 FL (7.4-10.4); MONOCYTES # (AUTO) 0.5 X10'3 (0-0.9); NEUTROPHILS # (AUTO) 3.9 X10'3 (1.8-7.7); NEUTROPHILS % (AUTO) 59.6 % (42-75); PLATELET COUNT 426 X10'3 (140-440); RED BLOOD COUNT 4.23 X10'6 (4.70-6.10); RED CELL DISTRIBUTION WIDTH 13.8 % (11.5-14.5); WHITE BLOOD COUNT 6.6 X10'3 (4.5-11.0)
--- NOTE | 2021-02-01 06:27 | NUR ---
Patient in room [facility]. I have received report from AISLINN Acharya and had the opportunity to ask questions and assume patient care.
[2021-02-01 06:30] LABS: ALANINE AMINOTRANSFERASE 167 U/L (12-78); ALBUMIN 2.7 G/DL (3.4-5.0); ALBUMIN/GLOBULIN RATIO 0.6 (1.1-1.5); ALKALINE PHOSPHATASE 116 IU/L (46-116); ANION GAP 5 (8-16); ASPARTATE AMINO TRANSFERASE 54 U/L (10-37); BILIRUBIN,TOTAL 0.2 MG/DL (0.1-1.0); BLOOD UREA NITROGEN 13 MG/DL (7-18); BUN/CREATININE RATIO 17.1 (5.4-32.0); CALCIUM 8.8 MG/DL (8.5-10.1); CHLORIDE 103 MMOL/L (99-107); CREATININE 0.76 MG/DL (0.60-1.10); GLUCOSE 107 MG/DL (70-104); POTASSIUM 4.4 MMOL/L (3.5-5.1); SODIUM 137 MMOL/L (135-145); TOTAL CARBON DIOXIDE 28.6 MMOL/L (24-32); TOTAL PROTEIN 7.1 G/DL (6.4-8.2); eGFR > 90 ML/MIN
[2021-02-01 07:00] VITALS: BP 156/107
[2021-02-01] MEDS: MESSAGE TO NURSING IV SCH (07:00)
[2021-02-01] MEDS: enoxaparin 40mg/0.4ml syringe SUBCUT SCH (08:00)
[2021-02-01] MEDS: K and/or MAG REPLACEMENT MC SCH (08:00)
[2021-02-01] MEDS: lactobacillus rhamnosus 10,000 MMU CELLS/CAPSULE PO SCH (08:15)
[2021-02-01] MEDS: docusate sod 100mg capsule PO SCH (08:15)
[2021-02-01] MEDS: montelukast 10mg tablet PO SCH (08:15)
[2021-02-01] MEDS: mineral oil/petrolatum, white cream 113gm jar TP SCH (08:16)
[2021-02-01 11:00] VITALS: BP 119/86
[2021-02-01] MEDS ORDERED: NICO-687 TD (14:47)
[2021-02-01] MEDS ORDERED: DOXY150T5 PO (14:47)
[2021-02-01] MEDS ORDERED: CEPH250T PO (14:47)
--- NOTE | 2021-02-01 17:36 | NUR ---
Pt discharged to home at 1700, with all belongings, in private vehicle. Discharge instructions and medications reviewed. New prescriptions called to [facility] on [address]. Pt instructed to follow up with PCP in 1 week, as well as to obtain CBC in 1 week. Pt instructed to return to ED if symptoms return. Pt stated understanding and willingness to comply with all discharge instructions. PICC line DC'd, cannula intact. Pt escorted to front lobby by PCT.
== END 2021-02-01 17:00 | disposition home or self-care (01) | DRG 383 ==
LOC: ER 03:41 → ED HOLD 10:20 → SUR 3N 14:15
PROVIDERS: ADMIT Family Medicine; ATTEND Family Medicine
PROC: 3E0234Z Introduction of Serum, Toxoid and Vaccine into Muscle, Percutaneous Approach (ICD-10-PCS; principal; 2021-01-24)
PROC: BP2U1ZZ Computerized Tomography (CT Scan) of Left Upper Extremity using Low Osmolar Contrast (ICD-10-PCS; 2021-01-24)
DX: L03.114 Cellulitis of left upper limb (principal); F12.90 Cannabis use, unspecified, uncomplicated; F15.10 Other stimulant abuse, uncomplicated; F41.1 Generalized anxiety disorder; S50.312A Abrasion of left elbow, initial encounter; R74.01 Elevation of levels of liver transaminase levels; F17.210 Nicotine dependence, cigarettes, uncomplicated; Z59.0 Homelessness; Z23 Encounter for immunization; Z71.6 Tobacco abuse counseling; V29.9XXA Motorcycle rider (driver) (passenger) injured in unspecified traffic accident, initial encounter; Y93.55 Activity, bike riding; Y92.89 Other specified places as the place of occurrence of the external cause; Y99.8 Other external cause status
CPT/HCPCS: 36415; 36573; 71045; 73201; 73220; 80053; 80202; 81001; 83605; 83735; 84145; 85007; 85025; 87040; 87081; 90715; 96365; 99285; A9575; G0378; J1170; J1650; J2543; J3370; J3490; J7030; Q0177; Q9967

== ENCOUNTER 2021-05-30 11:04 | Emergency (ER) | payer MEDICAID ==
[~2021-05-30] VITALS: Ht 177.8 cm; Wt 86.4 kg
[~2021-05-30 11:04] MED LIST changes: +NICO-687 TD
[2021-05-30 12:25] VITALS: BP 139/84
== END 2021-05-30 13:51 | disposition home or self-care (01) ==
LOC: ER 11:04
DX: F15.10 Other stimulant abuse, uncomplicated (principal); F12.90 Cannabis use, unspecified, uncomplicated; Z59.00 Homelessness unspecified; Z79.899 Other long term (current) drug therapy; Z98.890 Other specified postprocedural states
CPT/HCPCS: 99281